=== PATIENT | female | born 1985 | race Caucasian/White ===

== ENCOUNTER 2016-12-27 03:39 | Emergency (ER) | payer SELFPAY ==
[2016-12-27 04:26] LABS: BASOPHIL 0.2 % (0-2); EOSINOPHIL 0.6 % (0-5); HCT 36.4 % (37.0-47.0); HGB 12.6 g/dl (12.5-16.0); LYMPHOCYTE 35.2 % (15-48); MCH 31.5 pg (25.0-31.0); MCHC 34.6 g/dL (32.0-36.0); MPV 10.3 fL (6.0-9.5); PLT 228 K/uL (150-400); RDW 12.1 % (11.5-14.0); WBC 6.3 K/uL (4.0-10.5)
[2016-12-27 04:27] LABS: BILIRUBIN NEGATIVE (NEGATIVE); BLOOD TRACE-INTACT Ery/uL (NEGATIVE); CLARITY CLEAR (CLEAR); COLOR YELLOW (YELLOW); GLUCOSE (U) NORMAL (NORMAL); KETONE (U) NEGATIVE (NEGATIVE); LEUKOCYTES NEGATIVE Leu/uL (NEGATIVE); NITRITE NEGATIVE (NEGATIVE); PROTEIN NEGATIVE (NEGATIVE); SPECIFIC GRAVITY 1.015 (1.001-1.030); UROBILINOGEN 0.2 mg/dL (0.2-1.0)
[2016-12-27 04:32] LABS: SQUAMOUS EPITHELIAL CELLS RARE; URINARY RBC RARE
[2016-12-27 04:50] LABS: ALBUMIN 4.4 g/dL (3.5-5.0); BILIRUBIN - TOTAL 0.2 mg/dL (0.1-1.0); CREATININE 0.5 mg/dL (0.5-1.0); GLOBULIN (CALCULATION) 2.4 g/dL (2.2-4.2); POTASSIUM 3.3 mmol/L (3.5-5.1); TOTAL PROTEIN 6.8 g/dL (6.4-8.3)
[2016-12-27 07:19] LABS: CREATININE 0.5 mg/dL (0.5-1.0); POTASSIUM 3.9 mmol/L (3.5-5.1)
== END 2016-12-27 11:07 | disposition home or self-care (01) ==
LOC: FER 03:39
PROVIDERS: Emergency Medicine Emergency Medical Services
DX: R10.13 Epigastric pain (principal); R11.2 Nausea with vomiting, unspecified; R42 Dizziness and giddiness; E86.9 Volume depletion, unspecified; K21.9 Gastro-esophageal reflux disease without esophagitis; Z90.49 Acquired absence of other specified parts of digestive tract; Z79.899 Other long term (current) drug therapy
CPT/HCPCS: 36415; 70450; 80048; 80053; 81001; 82150; 83690; 85025; 87339; 93005; J2405; J3360; Q9967

== ENCOUNTER 2021-04-17 14:32 | Emergency (ER) | payer SELFPAY ==
[~2021-04-17 14:32] MED LIST: VOLTAREN **OUT75 MG PO; XANAX0.5 MG PO
== END 2021-04-17 17:37 | disposition home or self-care (01) ==
LOC: FER 14:32
DX: Z23 Encounter for immunization (principal); U07.1 COVID-19
CPT/HCPCS: M0245; Q0245